=== PATIENT | male | born 1965 | race Caucasian/White ===

== ENCOUNTER 2019-07-04 08:26 | Outpatient (CLI) | payer BC, SELFPAY ==
--- NOTE | 2019-07-14 04:40 | SLEEP_ITS ---
Basic Nocturnal Polysomnogram DATE OF STUDY: 07/04/2019 REASON FOR THIS STUDY: Prior home sleep test with mild obstructive sleep apnea syndrome, return to the lab for definitive diagnosis. HISTORY: This patient is a 53-year-old male, 72 inches tall, weighing 242 pounds with a body mass index of 32.8. On a prior home sleep test May 13, 2019, he had an apnea-hypopnea index of 12 with desaturation to 80% with the majority of his apneas obstructive. His symptoms are significant and he presents at this time for an in-lab study for more accurate diagnosis. His complaints included frequent snoring, loud enough that others complain about it, occasionally falling asleep during the day, but never while driving, frequent leg pain at night with a history of restless legs syndrome. He does take naps, which sometime are refreshing. He is drowsy in the morning for 3 hours or longer. MEDICAL COMORBIDITIES: 1. Arthritis. 2. Prostate cancer. 3. Right hip pain. 4. Vitamin D deficiency. 5. Vitamin B12 deficiency. 6. Restless legs syndrome. 7. Erectile dysfunction. MEDICATIONS: 1. Multivitamin 1 tablet daily. 2. Naprosyn 500 mg b.i.d. with food. 3. B12 extended release at 1000 mcg daily. 4. Vitamin D3 at 1000 units daily. HABITS: Never smoked tobacco. Caffeine, 3 to 4 servings per day. Alcohol, 1 to 2 per month. No recreational drugs. DESCRIPTION OF THE STUDY: On the [place] Sleepiness Scale, his score is 10. This was conducted as a full night attended nocturnal polysomnogram using the [facility] multiple channel system including EOG, EEG, submental EMG, EKG, nasal and oral airflow using thermistors and nasal pressure sensors, chest and abdominal belts, body position data and pulse oximetry. This study was scored using [facility] guidelines. Duration of the study was 440.6 minutes. Sleep time was 397.2 minutes. Sleep efficiency was 90.2%. Sleep latency was 13.9 minutes. REM latency was prolonged, 173.5 minutes. There were 23 awakenings and the patient spent 6.9% of the study or 29.5 minutes awake after sleep onset. Sleep architecture showed 10.2% stage I sleep, 62.4% stage II sleep, no stage III sleep, and 20.5% stage REM. The patient spent 73% of the study supine, the remainder was non-supine. He had 3 REM episodes. Sleep was somewhat fragmented with shifts between wakefulness, stage I, stage II with fragmentation of the initial REM episode. The apnea-hypopnea index was 16.2, the obstructive index 15, and the central index 1.2. In supine REM, the patient had 3 obstructive apneas, 40 obstructive hypopneas for an index of 51.6, extremely severe during supine REM. No events occurred during non-supine REM. The patient had 3 obstructive apneas, 5 central apneas, 52 obstructive hypopneas in supine non-REM for an index of 13.7. He had 1 obstructive hypopnea and 3 central apneas during non-supine non-REM for an index of 5. The supine index was 19.8, non-supine index was 2.8. Lowest desaturation was 82%. The patient spent 0.8 minutes below 88%, 0.2% of the study. He had 105 desaturations of 4% or greater for an index of 14.3. REM desaturation index is 30.2. The mean saturation was 95%. AROUSALS: Two hundred sixty-nine arousals for an index of 36.6. There were 3 apneas for an index of 0.4, 26 hypopneas for an index of 3.5, 44 snores for an index of 6, 36 spontaneous arousals for an index of 4.9, and 160 limb movement causing arousal for an index of 21.8. LIMB MOVEMENTS: Seven hundred forty-five isolated limb movements for an index of 112.5. There were 14 periodic limb movements for an index of 2.1. EKG: Mean heart rate is 62. No arrhythmia. Loud snoring was noted throughout the test. There were a few PVCs on his EKG. IMPRESSION: 1. This
== END 2019-07-04 08:27 | disposition home or self-care (01) ==
LOC: ANHCSM 08:26
PROVIDERS: PCP Family Medicine; Visit Provider Family Medicine
DX: G47.33 Obstructive sleep apnea (adult) (pediatric) (principal); G47.61 Periodic limb movement disorder
CPT/HCPCS: 95810

== ENCOUNTER 2022-02-17 00:21 | Day surgery (SDC) | payer BC, SELFPAY ==
[2022-02-08 13:47] VITALS: BMI 32.5
--- NOTE | 2022-02-16 10:01 | WPDANESEPPF ---
Anes - Initial Pre Proc Eval Procedure: Operation Date: 02/17/22 07:30 Proposed Procedures p Screening Colonoscopy - Mark Santana MD Date/Time: 02/16/22 10:01 Surgeon: Mark Santana MD Pre Op Diagnosis: neoplasm screening Patient Data Age: 56 Gender: M Height: 1.83 m Weight: 109 kg Allergies Allergy/AdvReac Type Severity Reaction Status Date / Time No Known Allergies Allergy Verified 02/17/22 06:19 Home Medications Medication Instructions Recorded Confirmed Type cholecalciferol (vitamin D3) 25 1,000 unit PO DAILY 04/22/19 02/08/22 History mcg (1,000 unit) capsule cyanocobalamin (vitamin B-12) 1,000 mcg PO DAILY 04/22/19 02/08/22 History 1,000 mcg tablet,extended release (Vitamin B-12 ER) multivitamin,[id number] 1 tablet PO DAILY 04/22/19 02/08/22 History (Complete Multivitamin tablet) Patient hx anesthesia problems: none Family hx anesthesia problems: none Results Review: All pre-operative results and documents have been reviewed as part of the pre-operative evaluation. [facility] Past Medical History Medical History (Updated 02/17/22 @ 06:53 by Favian Sosa, ) BMI 35.0-35.9,adult Chronic right shoulder pain Colon cancer screening COVID-19 (10/27/21) Encounter for prostate cancer screening PSA normal at 0.4 on 03/24/2020. PSA 0.37 on 12/30/2021. Encounter for wellness examination in adult Obesity (BMI 30-39.9) Obstructive sleep apnea moderate MARIANNE with AHI of 16.2 on 07/04/2019. Periodic limb movement disorder PLM index of 21 on sleep study 07/04/2019. Ferritin level normal at 102 on 12/30/2021. Pigmented skin lesion of suspected malignant nature (~2020) 0.8 cm right mid back 12/15/2021 Restless legs syndrome Family History Family History (Updated 10/14/18 @ 17:55 by DOCTOR UNKNOWN) Grandparent Diabetes mellitus Family history of alcoholism Father Family history of mental disorder Patient's father is , Onset Age: 73 Family history of lung cancer Diabetes mellitus Depression Mother Hypertension Diabetes mellitus Family history of osteoarthritis Sibling Patient's sister is in good health Patient's brother is in good health Other Family history of chronic obstructive pulmonary disease Social History Social History (Updated 12/15/21 @ 14:17 by Jennifer Abarca MA) Smoking status: Never smoker Tobacco type: smokeless tobacco Smokeless tobacco user: chewing tobacco Alcohol intake: current Drinks per week: 1 Alcohol use details: socially Substance use: never Substance use type: does not use Living arrangements: with family Spiritual care concerns: No Anes - Eval Final PreProcedure Day of Procedure 02/16/22 10:01 Patient weight: obese Heart: regular rate and rhythm Lungs: clear to auscultation Airway: Mallampati scale class II Neurological: alert and oriented Last oral intake: >/= 8 hours ASA classification: III Emergent: no Anesthetic plan: proceed Anesthesia type and monitoring: general GIVS and standard monitoring Results Review: All pre-operative results and documents have been reviewed as part of the pre-operative evaluation. Informed Consent: The patient's anesthetic plan and its attendant risks and benefits were discussed with the patient/family/POA. Questions were solicited and answers provided to the satisfaction of the patient/family/POA.
[2022-02-17 06:19] VITALS: BP 123/87; PULSE 63; RESP 20; TEMP 36.3; O2SAT 98; BMI 33.1
[2022-02-17] MEDS: LACTATED RINGERS 1,000 ML 150 ML IV CONT (06:27)
--- NOTE | 2022-02-17 07:23 | PM.HPGS ---
History of Present Illness History of Present Illness Consent: Risks, benefits, and alternatives have been discussed and questions answered. Patient agrees to proceed with procedure. Chief complaint: neoplasm screening Narrative: Willem Smith is a 56 year old male here for screening colonoscopy, last one 7 years ago Review of Systems Constitutional: Constitutional: Denies headache(s) and Denies weakness Eyes: Eyes: Denies blurry vision ENT: Reports Normal hearing present, Denies headache(s) and Denies neck pain Cardiovascular: Cardiovascular: Denies chest pain and Denies dyspnea Respiratory: Respiratory: Denies dyspnea Gastrointestinal: Gastrointestinal: Reports no additional gastrointestinal complaints Genitourinary: Genitourinary: Denies dysuria Musculoskeletal: Musculoskeletal: Denies neck pain Integumentary/Breasts: Skin/Breast: Denies dry skin Neurologic: Reports Normal hearing present, Denies headache(s) and Denies weakness Psychiatric: Psychiatric: Denies anxiety Endocrine: Endocrine: Denies change in body appearance Hematologic/Lymphatic: Hematologic/Lymphatic: Denies easy bleeding Allergic/Immunologic: Allergic/Immunologic: Denies urticaria PMFSH Past Medical History Medical History (Updated 02/17/22 @ 06:53 by Favian Sosa, ) BMI 35.0-35.9,adult Chronic right shoulder pain Colon cancer screening COVID-19 (10/27/21) Encounter for prostate cancer screening PSA normal at 0.4 on 03/24/2020. PSA 0.37 on 12/30/2021. Encounter for wellness examination in adult Obesity (BMI 30-39.9) Obstructive sleep apnea moderate MARIANNE with AHI of 16.2 on 07/04/2019. Periodic limb movement disorder PLM index of 21 on sleep study 07/04/2019. Ferritin level normal at 102 on 12/30/2021. Pigmented skin lesion of suspected malignant nature (~2020) 0.8 cm right mid back 12/15/2021 Restless legs syndrome Family History Family History (Updated 10/14/18 @ 17:55 by DOCTOR UNKNOWN) Grandparent Diabetes mellitus Family history of alcoholism Father Family history of mental disorder Patient's father is , Onset Age: 73 Family history of lung cancer Diabetes mellitus Depression Mother Hypertension Diabetes mellitus Family history of osteoarthritis Sibling Patient's sister is in good health Patient's brother is in good health Other Family history of chronic obstructive pulmonary disease Social History Social History (Updated 12/15/21 @ 14:17 by Jennifer Abarca MA) Smoking status: Never smoker Tobacco type: smokeless tobacco Smokeless tobacco user: chewing tobacco Alcohol intake: current Drinks per week: 1 Alcohol use details: socially Substance use: never Substance use type: does not use Living arrangements: with family Spiritual care concerns: No Meds Home Medications and Allergies Home Medications Medication Instructions Recorded Confirmed Type cholecalciferol (vitamin D3) 25 1,000 unit PO DAILY 04/22/19 02/08/22 History mcg (1,000 unit) capsule cyanocobalamin (vitamin B-12) 1,000 mcg PO DAILY 04/22/19 02/08/22 History 1,000 mcg tablet,extended release (Vitamin B-12 ER) multivitamin,[id number] 1 tablet PO DAILY 04/22/19 02/08/22 History (Complete Multivitamin tablet) Allergies Allergy/AdvReac Type Severity Reaction Status Date / Time No Known Allergies Allergy Verified 02/17/22 06:19 Vital Signs Vital Signs - 24 hr 02/17/22 06:19 Temperature 97.3 F L Pulse Rate 63 Respiratory Rate 20 Blood Pressure 123/87 Pulse Oximetry 98 Oxygen Delivery Room Air Exam Const: General: comfortable and no acute distress HENMT: General nose exam: Normal nares present Eyes: General: appearance normal, both eyes and all related structures Neck: Neck: no JVD Resp: Auscultation: clear to auscultation bilaterally Cardio: Rate: regular rate Rhythm: regular rhythm GI: Inspection: non-d
[2022-02-17 07:45] VITALS: BP 129/64; PULSE 66; RESP 16; O2SAT 96
[2022-02-17 07:55] VITALS: BP 112/74; PULSE 60; RESP 21; O2SAT 98
[2022-02-17 08:05] VITALS: BP 115/78; PULSE 55; RESP 18; O2SAT 98
== END 2022-02-17 08:08 | disposition home or self-care (01) ==
PROVIDERS: PCP Family Medicine; Visit Provider Internal Medicine Gastroenterology
PROC: 0DJD8ZZ Inspection of Lower Intestinal Tract, Via Natural or Artificial Opening Endoscopic (ICD-10-PCS; CPT 45378; principal; 2022-02-17 07:30)
DX: Z12.11 Encounter for screening for malignant neoplasm of colon (principal); K64.8 Other hemorrhoids; Z86.16 Personal history of COVID-19; F17.210 Nicotine dependence, cigarettes, uncomplicated; E66.9 Obesity, unspecified; Z68.33 Body mass index [BMI] 33.0-33.9, adult
CPT/HCPCS: 45378; J2001; J2704; J7120

== ENCOUNTER 2023-01-12 09:30 | Outpatient (CLI) | payer BC, SELFPAY ==
--- NOTE | ~2023-01-12 | XR_ITS ---
AP view of the pelvis and AP and lateral views of the right hip Clinical history: Pain Findings: No acute fracture or dislocation is seen. Osseous alignment is anatomic. Bilateral hip and SI joint spaces are preserved. Soft tissues are unremarkable. Impression: No significant abnormality is seen. Reviewed, dictated and finalized at location . Impression: No significant abnormality is seen.
== END 2023-01-12 09:31 | disposition home or self-care (01) ==
PROVIDERS: PCP Family Medicine; Visit Provider Nurse Practitioner Family
DX: M25.551 Pain in right hip (principal)
CPT/HCPCS: 73502

== ENCOUNTER → 2023-03-08 11:05 | Outpatient (CLI) | payer BC, SELFPAY ==
--- NOTE | ~2023-03-08 | XR_ITS ---
XR lumbar spine min 4V DATE: 03/08/2023 11:29 INDICATION: Low back pain TECHNIQUE: AP, lateral, coned lateral lumbosacral views COMPARISON: None FINDINGS: Mild thoracolumbar dextroscoliosis. There is multi-level degenerative disc disease, moderate at L1-2, L2-3, moderately severe degenerati ve disc disease at L3-4, L4-5 and L5-S1. ]There is degenerative change at the apophyseal joints, with mild grade 1 anterolisthesis at L4-5. No fracture or bone destruction. The lumbar pedicles are intact. The sacroiliac joints are within n ormal limits. IMPRESSION: Multilevel degenerative disc disease Reviewed, dictated and finalized at location L.
== END ==
PROVIDERS: PCP Family Medicine; Visit Provider Family Medicine
DX: M54.50 Low back pain, unspecified (principal); M51.36 Other intervertebral disc degeneration, lumbar region
CPT/HCPCS: 72110

== ENCOUNTER 2023-03-17 10:26 | Outpatient (CLI) | payer BC, SELFPAY ==
--- NOTE | ~2023-03-17 | MR_ITS ---
EXAMINATION: MR lumbar spine wo con DATE: 03/17/2023 11:23 INDICATION: Low back pain. TECHNIQUE: Magnetic resonance imaging (MRI) of the lumbar spine was performed without intravenous con trast. Sequences included sagittal T2-weighted FSE, sagittal T2-weighted FS FSE, sagittal T1-weighted FSE, and axial T2-weighted FSE. COMPARISON: Lumbar spine radiographs 03/08/2023 FINDINGS: There is 10 degrees levoscoliosis of lumbar spine. There is 4 mm anterolisthesis of L4 on L 5. There is moderately decreased disc height at L2-L3 and severely decreased disc height from L3-L4 t hrough L5-S1 with endplate remodeling. The distal spinal cord signal intensity is normal. The conus m edullaris is at L1. The following disc levels are specifically discussed: L1-L2: The disc does not extend beyond the endplate margin. There is mild bilateral facet joint osteo arthritis. There is no neural foraminal stenosis. There is no central canal stenosis. L2-L3: The disc is bulging and has an annular fissure. There is mild bilateral facet joint osteoarthr itis. There is mild bilateral neural foraminal stenosis. There is mild central canal stenosis. L3-L4: The disc is bulging and has an annular fissure. There is moderate bilateral facet joint osteoa rthritis. There is moderate bilateral neural foraminal stenosis. There is mild central canal stenosis . L4-L5: The disc is bulging and has an annular fissure. There is severe bilateral facet joint osteoart hritis. There is moderate bilateral neural foraminal stenosis. There is mild central canal stenosis. L5-S1: The disc is bulging and has an annular fissure. There is severe bilateral facet joint osteoart hritis. There is mild right and moderate left neural foraminal stenosis. There is mild central canal stenosis. IMPRESSION: 1. Severe lumbar spondylosis. 2. Lumbar levoscoliosis. Reviewed, dictated and finalized at location A.
== END 2023-03-17 10:27 | disposition home or self-care (01) ==
PROVIDERS: PCP Family Medicine; Visit Provider Family Medicine
DX: M54.41 Lumbago with sciatica, right side (principal); G89.29 Other chronic pain; M47.896 Other spondylosis, lumbar region
CPT/HCPCS: 72148

== ENCOUNTER 2023-06-10 10:38 | Outpatient (CLI) | payer BC, SELFPAY ==
--- NOTE | ~2023-06-10 | MR_ITS ---
MRI of the right hip Clinical history: Pain Technique: Coronal T1-weighted, T2-weighted, and proton-density fat-sat images, and axial T1-weighted and proton-density fat-sat images were acquired through the pelvis. Coronal T2-weighted images and c oronal, axial, and sagittal proton-density fat-sat images were acquired through the right hip. Findings: There is severe right hip joint osteoarthritis, with joint space narrowing, diffuse high-gr sheila chondromalacia and spurring at the superolateral acetabular margin. There is extensive marrow deanne ma throughout the right femoral head and neck, with questionable subchondral insufficiency fracture. There is reactive marrow edema in the superior acetabulum. There is moderate right hip joint effusion , presumably reactive. No femoral neck fracture seen. There is mild diffuse chondromalacia the left h ip joint. Bone marrow signals the proximal left femur and remaining pelvic bones are unremarkable. No left hip joint effusion. There is probable diffuse degenerative right acetabular labral tearing. Visualized musculature about the pelvis and right hip is unremarkable. No muscle atrophy or edema. Be cause tendons are intact. No fluid collection, bursitis, or mass lesion identified. IMPRESSION: Severe right hip joint osteoarthritis, as detailed above, with possible subchondral insufficiency fra cture at the superior right femoral head. There is extensive reactive marrow edema in the right femor al head and right femoral neck. Moderate right hip joint effusion, presumably reactive. Mild degenerative change of the left hip joint. Diffuse right acetabular degenerative labral tearing. Reviewed, dictated and finalized at [facility]. [employer] IMPRESSION: Severe right hip joint osteoarthritis, as detailed above, with possible subchon dral insufficiency fracture at the superior right femoral head. There is extens lily reactive marrow edema in the right femoral head and right femoral neck. Moderate right hip joint effusion, presumably reactive. Mild degenerative change of the left hip joint. Diffuse right acetabular degenerative labral tearing.
== END 2023-06-10 10:39 | disposition home or self-care (01) ==
PROVIDERS: PCP Family Medicine; Visit Provider Anesthesiology Pain Medicine
DX: M16.11 Unilateral primary osteoarthritis, right hip (principal); M25.451 Effusion, right hip
CPT/HCPCS: 73721